=== PATIENT | male | born 1985 | race Caucasian/White ===

== ENCOUNTER 2017-01-26 17:37 | Emergency (ER) | payer OTHER ==
[~2017-01-26] VITALS: Ht 172.7 cm; Wt 98.0 kg
[2017-01-26 17:42] VITALS: BP 128/83; PULSE 97; RESP 16; TEMP 98.3; O2SAT 99
--- NOTE | 2017-01-26 17:45 | PD ---
HPI Chief Complaint: Injury Time Seen by Provider: 17:45 Travel History International Travel<30 days: No Contact w/Intl Traveler<30days: No Traveled to known affect area: No History of Present Illness HPI 31-year-old male presents to the emergency Department with 4 week history of right dorsal thumb pain at the MCP joint. Patient states he's had x- rays without significant findings recently. Patient states it's gotten worse in the past 2 days for no apparent reason. He denies specific injury. He is a [employer] who types a lot during the day. He has no numbness or tingling. Pain limits movement but strength is intact. Patient has been seen by his PCP who ordered the x-rays. He is currently waiting for follow-up with possible MRI and referral. Patient came in today because his pain was much worse since Friday. Pain is described as a 9 out of 10. Worse with movement. Patient is allergic to codeine and penicillin. PFSH Past Medical History Autoimmune Disease: No Cancer: No Cardiovascular Problems: No Chemotherapy: No Diabetes: No Endocrine: No Genitourinary: No Hepatitis: No Hiatal Hernia: No Immune Disorder: No Musculoskeletal: No Neurologic: No Psychiatric: No Reproductive: No Respiratory: No Radiation Therapy: No Sickle Cell Disease: No Thyroid Disease: No Past Surgical History Abdominal Surgery: Yes (HERNIA) AICD: No Arteriovenous Shunt: No Cardiac Surgery: No Ear Surgery: No Endocrine Surgery: No Eye Surgery: No Genitourinary Surgery: No Gynecologic Surgery: No Insulin Pump: No Joint Replacement: No Oral Surgery: Yes (WISDOM) Pacemaker: No Thoracic Surgery: No Social History Alcohol Use: No Tobacco Use: No Substance Use: No Allergies-Medications (Allergen,Severity, Reaction): Coded Allergies: Codeine (Unverified Allergy, Severe, SEVERE NAUSEA/VOMIT, 01/26/17) Penicillin (Unverified Allergy, Severe, Hives, 01/26/17) Reported Meds & Prescriptions Reported Meds & Active Scripts Active Prednisone 20 Mg Tab 20 Mg PO BID Review of Systems Except as stated in HPI: all other systems reviewed are Neg General / Constitutional: No: Fever Eyes: No: Visual changes HENT: No: Headaches Cardiovascular: No: Chest Pain or Discomfort Respiratory: No: Shortness of Breath Gastrointestinal: No: Abdominal Pain Genitourinary: No: Dysuria Musculoskeletal: Positive: Arthralgias, Limited ROM, Pain (see history of present illness.) Skin: No Rash Neurologic: No: Weakness Psychiatric: No: Depression Endocrine: No: Polydipsia Hematologic/Lymphatic: No: Easy Bruising Physical Exam Narrative GENERAL: Patient appears in mild to moderate distress. SKIN: Warm and dry. Color. Normal turgor. No signs of trauma. No rash. HEAD: Atraumatic. Normocephalic. EYES: Pupils equal and round. No scleral icterus. No injection or drainage. ENT: No nasal bleeding or discharge. Mucous membranes pink and moist. NECK: Trachea midline. Supple nontender. CARDIOVASCULAR: Regular rate and rhythm. RESPIRATORY: No accessory muscle use. Clear to auscultation. Breath sounds equal bilaterally. MUSCULOSKELETAL: Extremities without clubbing, cyanosis, or edema. No obvious deformities. Right hand appears normal without significant deformity or swelling. Patient has significant pain with palpation over the MCP joint of the right thumb. Patient is able to move the finger, but is limited secondary to pain. Neurovascular exam is unremarkable. With Tinel's sign of both the wrist and the elbow. Forearm elbow and shoulder on the right are normal. No other significant findings are noted. NEUROLOGICAL: Awake and alert. No obvious cranial nerve deficits. Motor grossly within normal limits. Five out of 5 muscle strength in the arms and legs. Normal speech. PSYCHIATRIC: Appropriate mood and affect; insight and judgment normal. Data Data Last Documented VS Vital Signs Date Time Temp Pulse Resp B/P Pulse Ox O2 Delivery O2 Flow Rate FiO2 01/26/17 17:42 98.3 97 16 128/83 99 Orders Hand, Complete ([id number]) (01/26/17 18:09) Splint Or Brace Apply/Monitor (01/26/17 18:09) Prednisone (Deltasone) (01/26/17 18:15) [facility] Medical Decision Making Medical Screen Exam Complete: Yes Emergency Medical Condition: Yes Differential Diagnosis Right MCP joint pain. Tendinitis. Arthritis. Gout. Fracture. Narrative Course Patient is medically stable at time of exam. X-ray of the right hand is ordered. X-ray shows no acute findings per radiologist. Patient is given 60 mg prednisone by mouth. Patient is placed in a thumb spica splint. Patient will be continued on prednisone 20 mg twice a day for 5 days. Patient take Tylenol as well as needed. Patient is to maintain the splint at all times until seen in follow-up. Patient is referred to Dr. Britton, the hand surgeon supervisor product inspection for follow-up. Patient to follow with his primary care physician as well. Diagnosis Primary Impression: Arthritis of carpometacarpal (CMC) joint of right thumb Additional Impression: Tenosynovitis Referrals: Soila Britton MD call for appointment Patient Instructions: Arthritis (ED), General Instructions, Upper Extremity Tenosynovitis (DC) Additional Instructions: X-ray shows no acute findings per radiologist. Patient is given 60 mg prednisone by mouth. Patient is placed in a thumb spica splint. Patient will be continued on prednisone 20 mg twice a day for 5 days. Patient take Tylenol as well as needed. Patient is to maintain the splint at all times until seen in follow-up. Patient is referred to Dr. Britton, the hand surgeon supervisor product inspection for follow-up. Patient to follow with his primary care physician as well. Med/Other Pt SpecificInfo: Prescription(s) given Scripts Prednisone 20 Mg Tab20 Mg PO BID #10 TAB Prov:Altagracia Gambino DO 01/26/17 Disposition: 01 DISCHARGE HOME Condition: Stable Timmy Sutton January 26, 2017 17:45
[2017-01-26] MEDS ORDERED: predniSONE 20 MG TAB PO ONE (18:15)
[2017-01-26] MEDS ORDERED: PRED20 PO (18:23)
--- NOTE | 2017-01-26 19:03 | RADHPO ---
EXAM DATE/TIME: 01/26/2017 18:51 [facility] COMPARISON: No previous studies available for comparison. INDICATIONS : Right hand pain, no known injury MEDICAL HISTORY : None. SURGICAL HISTORY : None. ENCOUNTER: Initial ACUITY: 1 month PAIN SCORE: 8/10 LOCATION: Right hand FINDINGS: Three view examination of the right hand demonstrates no soft tissue swelling, dislocation, or fractu re. The carpal bones appear intact. The interphalangeal and metacarpophalangeal joints are intact. Bony mineralization is normal. CONCLUSION: Negative for fracture or dislocation. Follow up in 7-10 days is suggested if symptoms persist. Musa Duron MD FACR on January 26, 2017 at 19:00 Board Certified Radiologist. This report was verified electronically.
== END 2017-01-26 19:25 | disposition home or self-care (01) ==
LOC: PHEFT 17:37
DX: M18.9 Osteoarthritis of first carpometacarpal joint, unspecified (principal); M65.9 Synovitis and tenosynovitis, unspecified
CPT/HCPCS: 73130; 99283; J7512; L3808